=== PATIENT | female | born 1950 | race Caucasian/White ===

== ENCOUNTER → 2016-10-22 | Outpatient (CLI) | payer OTHER ==
[~2016-10-22] MED LIST: ASPEC81 PO; CHOL100010 PO; CLON1TAB3 PO; COEN150C PO; DILT-202 PO; FLUO20CA35 PO; LPT40 PO; NTRSLP4 SL; TRAZ50TA35 PO; [UNRECOGNIZED DRUG - CODE] PO
== END | disposition home or self-care (01) ==
LOC: C.MAMM 09:21
PROVIDERS: ATTEND Family Medicine
DX: E28.39 Other primary ovarian failure (principal)

== ENCOUNTER → 2017-04-23 | Outpatient (CLI) | payer OTHER ==
[~2017-04-23] MED LIST changes: +CRDCD120 PO; -DILT-202 PO
--- NOTE | 2017-04-24 13:48 | MAMMOGRAPHY REPORT ---
BILATERAL DIGITAL SCREENING MAMMOGRAM WITH CAD: 04/23/2017 CLINICAL HISTORY: Routine screening examination. TECHNIQUE: Bilateral CC and MLO views were obtained. Current study was also evaluated with a Compute r Aided Detection (CAD) system. COMPARISON: Comparison is made to exams dated: 02/26/2016 mammogram, 06/30/2014 mammogram, 03/26/2013 donita mogram, 08/20/2011 mammogram, 07/11/2010 mammogram - [facility], and 01/19/2009. BREAST COMPOSITION: The tissue of both breasts is almost entirely fatty. FINDINGS: There is a 6 mm asymmetry in the middle one third of the left breast, along the posterior nipple line on the CC view, 4.8 cm distal to the nipple. Although this could represent overlapping f ibroglandular tissue, additional spot compression tomosynthesis views and possibly ultrasound are rec ommended. No other suspicious mass, architectural distortion or cluster of microcalcifications is seen bilatera lly. IMPRESSION: ACR BI-RADS CATEGORY 0: INCOMPLETE EVALUATION: NEED ADDITIONAL IMAGING EVALUATION The 6 mm asymmetry in the left breast needs additional evaluation. The patient will be called to schedule an appointment. Approximately 10% of breast cancers are not detected with mammography. A negative mammographic report should not delay biopsy if a clinically suggestive mass is present. Chaya Munguia M.D. ay/:04/23/2017 16:31:56 Network Engineer: Deanna VENEGAS)([place]), [facility] letter sent: Addl Imaging 0 BI-RADS Code: ACR BI-RADS Category 0: Incomplete Evaluation: Need Additional Imaging Evaluation
== END | disposition home or self-care (01) ==
LOC: C.MAMM 15:36
PROVIDERS: ATTEND Family Medicine
DX: Z12.31 Encounter for screening mammogram for malignant neoplasm of breast (principal); N64.9 Disorder of breast, unspecified

== ENCOUNTER → 2017-05-02 | Outpatient (CLI) | payer OTHER ==
--- NOTE | 2017-05-02 12:44 | MAMMOGRAPHY REPORT ---
UNILATERAL LEFT DIGITAL DIAGNOSTIC MAMMOGRAM TOMOSYNTHESIS AND TARGETED LEFT ULTRASOUND: 05/02/2017 CLINICAL HISTORY: Callback from screening mammogram for left breast asymmetry. TECHNIQUE: Breast tomosynthesis in addition to standard 2D mammography was performed. Spot compress ion left CC and MLO 2-D and tomosynthesis images were obtained. COMPARISON: Comparison is made to exams dated: 04/23/2017 mammogram, 02/26/2016 mammogram, 06/30/2014 donita mogram, 03/26/2013 mammogram, 08/20/2011 mammogram, and 07/11/2010 mammogram - [facility]. BREAST COMPOSITION: The tissue of the left breast is almost entirely fatty. FINDINGS: Spot compression views demonstrate a subtle 4 mm focal asymmetry seen within the left mandeep st at approximately 3 to 4:00. The asymmetry appears similar to prior exams on the spot compression views, including the cc view from the 2008 exam and MLO view from the 2012 and 2009 exams. Targeted ultrasound was performed of the left slightly lateral breast at approximately 2 to 4:00 in t he region of the mammographic asymmetry. Sonographically normal tissue is seen, without evidence of a mass or other suspicious sonographic abnormality. IMPRESSION: ACR-BI-RADS CATEGORY 3: PROBABLY BENIGN, TARGETED ULTRASOUND ACR-BI-RADS CATEGORY 3: PRO BABLY BENIGN The left breast asymmetry appears similar to multiple prior exams including the 2008 exam on the venkat tional spot compression views, without a corresponding suspicious sonographic abnormality evident. G iven the long-term stability, the asymmetry is probably benign. Recommend follow-up diagnostic tomos ynthesis mammograms and possible ultrasound of the left breast in 6 months to confirm stability. The patient has been verbally notified of the results. Approximately 10% of breast cancers are not detected with mammography. A negative mammographic report should not delay biopsy if a clinically suggestive mass is present. Rina Russell M.D. ah/:05/02/2017 10:11:41 Bus And Trolley Dispatcher: Bee VENEGAS)([place]), [facility] letter sent: Follow Up Recommended 3 BI-RADS Code: ACR-BI-RADS Category 3: Probably Benign Ultrasound BI-RADS: ACR-BI-RADS Category 3: Pr obably Benign
== END | disposition home or self-care (01) ==
LOC: C.MAMM 09:30
PROVIDERS: ATTEND Family Medicine
DX: N64.89 Other specified disorders of breast (principal)

== ENCOUNTER 2017-11-08 06:53 | Emergency (ER) | payer OTHER ==
[~2017-11-08] VITALS: Ht 170.2 cm; Wt 80.0 kg
[~2017-11-08 06:53] MED LIST changes: -CRDCD120 PO; +DILT-202 PO
[2017-11-08 06:58] VITALS: TEMP 36.7; Ht 170.2 cm; Wt 80.0 kg
[2017-11-08] MEDS ORDERED: DILT120C PO (07:00)
[2017-11-08] MEDS ORDERED: PYRI100T4 PO (07:22)
[2017-11-08] MEDS ORDERED: ASPI81TA28 PO (07:22)
[2017-11-08 07:31] LABS: HEMATOCRIT 38.5 % (37-47); HEMOGLOBIN 13.5 g/dL (12.0-16.0); MEAN CELL VOLUME 86.7 fL (80-100); MEAN CORPUSCULAR HEMOGLOBIN 30.4 pg (25-34); MEAN CORPUSCULAR HGB CONC 35.1 g/dl (32-36); MEAN PLATELET VOLUME 9.1 fL (7.4-10.4); PLATELET COUNT 251 K/uL (130-400); RED CELL DISTRIBUTION WIDTH CV 13.2 % (11.5-14.5); RED CELL DISTRIBUTION WIDTH SD 42.2 fL (36.4-46.3); WHITE BLOOD COUNT 3.99 K/uL (4.8-10.8)
--- NOTE | 2017-11-08 07:32 | EMERGENCY ROOM VISIT NOTE ---
History Report prepared by Todd: Herminia King Under the Supervision of: Dr. Kevin Combs M.D. First contact with patient: 07:04 Chief Complaint: CARDIAC ASSESSMENT Stated Complaint: PALPITATIONS Nursing Triage Summary: patient complaining of a "fluttering" feeling in her chest. no pain or shortness of breath. states it has happened before and they called it a "heart spasm". states she has been understress, her just had knee surgery and she states that she felt anxious and took a lorazapam at about 6am. states she had a flew shot on friday and felt as she had the flew earlier this week History of Present Illness The patient is a 67 year old female who presents to the Emergency Room with complaints of palpitations in her chest. 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 She states she has a history of coronary spasms and thought she was having a similar episode to the NSTEMI she had in 2015. She took an aspirin after her episode which improved her symptoms. Associated symptoms include weakness, nausea, and diarrhea that began on . She also notes that she had a flu shot this week and had a post flu shot fever and feels generally unwell. She did not take her pulse during the episode. The patient denies chest pain, SOB, abdominal pain, swelling of the hands and feet, and fevers. 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 A total of 10 systems reviewed and were otherwise negative. Abdomen: + diarrhea Past Medical & Surgical Medical Problems: (1) Anxiety (2) High cholesterol (3) NSTEMI Surgical Problems: (1) History of appendectomy Family History FHx: lung disease Hypertension Kidney disease Kidney stones Social History Smoking Status: Never Smoker Alcohol Use: none Drug Use: none Marital Status: Housing Status: lives with significant other Occupation Status: employed Current/Historical Medications Scheduled Aspirin (Aspirin Ec), 81 MG PO QPM Cholecalciferol (Vitamin D), 1,000 INTER.UNIT PO DAILY Coenzyme Q10 (Ubidecarenone) (Co Q-10), 150 MG PO DAILY Diltiazem Hcl Coated Beads (Diltiazem Hcl Er), 120 MG PO DAILY Fluoxetine (Prozac), 20 MG PO DAILY Pyridoxine (Vitamin B6), 100 MG PO DAILY Scheduled PRN Clonazepam (Klonopin), 1 MG PO DAILY PRN for Anxiety Nitroglycerin (Nitrostat), 0.4 MG SL UD PRN for Chest Pain Trazodone Hcl (Trazodone), 25 MG PO HS PRN for Sleep Allergies Coded Allergies: No Known Allergies (Unverified , `, 11/08/17) Physical Exam Vital Signs Date Time Temp Pulse Resp B/P (MAP) Pulse Ox O2 Delivery O2 Flow Rate FiO2 11/08/17 09:35 54 20 129/65 99 Room Air 11/08/17 08:47 62 20 125/41 99 Room Air 11/08/17 07:04 100 Room Air 11/08/17 06:58 36.7 63 20 127/73 100 Room Air Physical Exam GENERAL: Patient is a healthy-appearing well-nourished female. HEAD: Normocephalic atraumatic EYES: Ocular movements intact pupils equal and react to light OROPHARYNX mucous membranes are moist no exudates present no erythema or edema present NECK: Supple no nuchal rigidity CHEST: Good equal expansion LUNGS: Clear and equal to auscultation CARDIAC: Normal S1 and S2 ABDOMEN: Soft nontender no guarding BACK: No CVA tenderness EXTREMITIES: No pain upon palpation normal muscle strength in all groups no clubbing cyanosis or edema NEURO: Patient is following commands and answering questions appropriately. Alert and oriented x3 Cranial Nerves 2-12 grossly intact Medical Decision & Procedures ER Provider Diagnostic Interpretation: Radiology results as stated below per my review and radiologist interpretation: SINGLE VIEW CHEST CLINICAL HISTORY: Palpitations. FINDINGS: An AP, portable, upright chest radiograph is compared to chest x-ray and chest CT dated 09/18/2015. The examination is degraded by portable technique and patient rotation. The cardiomediastinal silhouette is unremarkable. There is atherosclerotic calcification of the thoracic aorta. Chronic interstitial thickening is similar to previous. No airspace consolidation or pleural effusion is identified. No pneumothorax is seen. The skeletal structures are osteopenic. The bony thorax is grossly intact. IMPRESSION: No acute cardiopulmonary abnormality. Electronically signed by: Martínez Roe M.D. 11/08/2017 7:37 AM Dictated Date/Time: 11/08/2017 7:36 AM Laboratory Results 11/08/17 07:20 11/08/17 07:20 Test 11/08/17 07:14 11/08/17 07:20 11/08/17 07:28 11/08/17 08:45 Creatine Kinase MB Ratio (0-3.0) Red Blood Count 4.44 M/uL (4.2-5.4) Mean Corpuscular Volume 86.7 fL (80-100) Mean Corpuscular Hemoglobin 30.4 pg (25-34) Mean Corpuscular Hemoglobin Concent 35.1 g/dl (32-36) RDW Standard Deviation 42.2 fL (36.4-46.3) RDW Coefficient of Variation 13.2 % (11.5-14.5) Mean Platelet Volume 9.1 fL (7.4-10.4) Anion Gap 11.0 mmol/L (3-11) Est Creatinine Clear Calc Drug Dose 76.3 ml/min Estimated GFR () 90.4 Estimated GFR (Non- 78.0 BUN/Creatinine Ratio 19.8 (10-20) Calcium Level 8.9 mg/dl (8.5-10.1) Total Bilirubin 0.3 mg/dl (0.2-1) Aspartate Amino Transf (AST/SGOT) 21 U/L (15-37) Alanine Aminotransferase (ALT/SGPT) 22 U/L (12-78) Alkaline Phosphatase 48 U/L (45-117) Creatine Kinase MB < 0.5 ng/ml (0.5-3.6) Total Protein 7.1 gm/dl (6.4-8.2) Albumin 3.2 gm/dl (3.4-5.0) Globulin 3.9 gm/dl (2.5-4.0) Albumin/Globulin Ratio 0.8 (0.9-2) Lipase 331 U/L (73-393) Thyroid Stimulating Hormone (TSH) 2.070 uIu/ml (0.300-4.500) Influenza Type A Antigen Neg for Influ A (NEG) Influenza Type B Antigen Neg for Influ B (NEG) Bedside Troponin I < 0.030 ng/ml (0-0.045) Test 11/08/17 09:15 Urine Color DK YELLOW Urine Appearance CLEAR (CLEAR) Urine pH 6.0 (4.5-7.5) Urine Specific [place] 1.028 (1.000-1.030) Urine Protein TRACE (NEG) Urine Glucose (UA) NEG (NEG) Urine Ketones TRACE (NEG) Urine Occult Blood 3+ (NEG) Urine Nitrite POS (NEG) Urine Bilirubin NEG (NEG) Urine Urobilinogen NEG (NEG) Urine Leukocyte Esterase MODERATE (NEG) Urine WBC (Auto) 10-30 /hpf (0-5) Urine RBC (Auto) 5-10 /hpf (0-4) Urine Hyaline Casts (Auto) 5-10 /lpf (0-5) Urine Epithelial Cells (Auto) >30 /lpf (0-5) Urine Bacteria (Auto) 4+ (NEG) ECG Rate (beats per minute): 63 Rhythm: normal sinus Findings: ST depression (Lateral), no acute ischemic change Comparison ECG Date: 09/18/2015 Change: ST depressions in the lateral leads have improved from the last EKG. 0747: Repeat EKG on visit. Sinus bradycardia, no xp or ischemia, rate of 55. Unchanged from previous. Patient's electrocardiogram per my interpretation. ED Course 0702: Past medical records reviewed. The patient was evaluated in room A2 by the resident. A complete history and physical examination was performed. 0714: Past medical records reviewed. The patient was evaluated in room A2. A complete history and physical examination was performed. 0901: Upon reexamination the patient is agreeable. I discussed results and treatment plan with the patient and recommended she follow up with cardiology. She verbalizes agreement and understanding . The patient is ready for discharge. Medical Decision Differential diagnosis: Etiologies such as premature contractions, electrolyte abnormality, cardiac dysrhythmia, thyroid dysfunction, pulmonary embolism, infection, gastrointestinal, as well as others were entertained. This is a 67-year-old female who presents emergency department complaining of palpitations. The patient does have a PVC on EKG however has normal CK-MB troponin function. Based on this I felt that the patient can be safely discharged home with close follow-up with cardiology. Patient was in agreement with the treatment plan. Resident Physician Supervision Note: I interviewed and examined the patient. Discussed with Dr. Angulo and agree with findings and plan as documented in the note. Documented By: Kevin Combs Blood Pressure Screening Patient's blood pressure: Normal blood pressure Impression Primary Impression: Palpitations Scribe Attestation The scribe's documentation has been prepared under my direction and personally reviewed by me in its entirety. I confirm that the note above accurately reflects all work, treatment, procedures, and medical decision making performed by me. Departure Information Dispostion Home / Self-Care Referrals Sonia Galindo M.D. (PCP) Patient Instructions My [facility] Additional Instructions Please follow up with your PCP (Dr. Galindo) in 1-2 weeks. 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 Snowden) in 1-2 weeks. Please stay well hydrated especially if you have diarrhea. Discharge instructions on dehydration will be printed for you on discharge. Please read these instructions carefully. Return to the ER if you experience a recurrence of your symptoms, chest pain or SOB on exertion out of proportion to your normal baseline.
--- NOTE | 2017-11-08 07:34 | EMERGENCY ROOM VISIT NOTE ---
History First contact with patient: 08:28 Chief Complaint: CARDIAC ASSESSMENT Stated Complaint: PALPITATIONS Nursing Triage Summary: patient complaining of a "fluttering" feeling in her chest. no pain or shortness of breath. states it has happened before and they called it a "heart spasm". states she has been understress, her just had knee surgery and she states that she felt anxious and took a lorazapam at about 6am. states she had a flew shot on friday and felt as she had the flew earlier this week History of Present Illness 67F with a PMHx of Palpitation in 2014 (admitted, cath was normal), anxiety and HLD p/w a 5 min episode of palpitations after waking up this AM that resolved with an ASA tablet. Pt was brought in by EMS. Patient stated that these palpitations felt similar to her episode that had her admitted in 2014 which is why she came to the hospital. Pt denies any chest pain, left arm pain, SOB, swelling of the hand or feet. Pt had a recent episode of diarrhea on going into Friday that has resolved. She states that she could be a little dehydrated. She does not have any thyroid history or family history of thyroid disease. Pt had a flu and Pneumococcal shot on Friday and had a bit of a fever on Friday and Friday. 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 Review of Systems See HPI for pertinent positives and negatives. A total of ten systems were reviewed and were otherwise negative. Past Medical/Surgical History Medical Problems: (1) Anxiety (2) High cholesterol (3) NSTEMI Surgical Problems: (1) History of appendectomy Family History FHx: lung disease Hypertension Kidney disease Kidney stones Social History Smoking Status: Never Smoker Alcohol Use: none Drug Use: none Marital Status: Housing Status: lives with significant other Occupation Status: employed Current/Historical Medications Scheduled Aspirin (Aspirin Ec), 81 MG PO QPM Cholecalciferol (Vitamin D), 1,000 INTER.UNIT PO DAILY Coenzyme Q10 (Ubidecarenone) (Co Q-10), 150 MG PO DAILY Diltiazem Hcl Coated Beads (Diltiazem Hcl Er), 120 MG PO DAILY Fluoxetine (Prozac), 20 MG PO DAILY Pyridoxine (Vitamin B6), 100 MG PO DAILY Scheduled PRN Clonazepam (Klonopin), 1 MG PO DAILY PRN for Anxiety Nitroglycerin (Nitrostat), 0.4 MG SL UD PRN for Chest Pain Trazodone Hcl (Trazodone), 25 MG PO HS PRN for Sleep Physical Exam Vital Signs Date Time Temp Pulse Resp B/P (MAP) Pulse Ox O2 Delivery O2 Flow Rate FiO2 11/08/17 08:47 62 20 125/41 99 Room Air 11/08/17 07:04 100 Room Air 11/08/17 06:58 36.7 63 20 127/73 100 Room Air Physical Exam Gen: No acute distress. Pleasant mood and affect. HEENT: Head - normocephalic and atraumatic. Pupils are equal, round, and reactive to light. Extraocular eye muscles are intact and sclera are anicteric. Ears - bilaterally patent canals with noninjected tympanic membranes and no evidence of hemotympanum. Nose - moist nasal mucosa without discharge. Mouth - moist buccal mucosa. Oropharynx is nonerythematous and there is no tonsillar exudate or edema noted. Neck: Supple; no JVD, nuchal rigidity, cervical lymphadenopathy, or auscultated bruits. Heart: Regular rate and rhythm. There is a normal S1 and S2 with no murmurs, clicks, or gallops appreciated. Lungs: Clear to auscultation bilaterally with no wheezes, rales, or rhonchi. Abdomen: Soft, completely nontender, nondistended, with good bowel sounds. There are no palpable pulsatile masses or hepatosplenomegaly. There is no guarding, rigidity, or rebound noted. Extremities: No evidence of cyanosis, clubbing, or edema. There are easily palpable peripheral pulses. Skin: Multiple small benign appearing Seborrheic Kerotosesover the left shoulder. Neuro:The patient is awake and alert, oriented to day, time, and place. Muscle strength is 5/5 in all 4 extremities. The patient has equal custom bookbinder strength and equal pedal push and pull. There are no cerebellar signs. Medical Decision & Procedures ER Provider Diagnostic Interpretation: SINGLE VIEW CHEST CLINICAL HISTORY: Palpitations. FINDINGS: An AP, portable, upright chest radiograph is compared to chest x-ray and chest CT dated 09/18/2015. The examination is degraded by portable technique and patient rotation. The cardiomediastinal silhouette is unremarkable. There is atherosclerotic calcification of the thoracic aorta. Chronic interstitial thickening is similar to previous. No airspace consolidation or pleural effusion is identified. No pneumothorax is seen. The skeletal structures are osteopenic. The bony thorax is grossly intact. IMPRESSION: No acute cardiopulmonary abnormality. Laboratory Results 11/08/17 07:20 11/08/17 07:20 Test 11/08/17 07:14 11/08/17 07:20 11/08/17 07:28 11/08/17 08:45 Creatine Kinase MB Ratio (0-3.0) Red Blood Count 4.44 M/uL (4.2-5.4) Mean Corpuscular Volume 86.7 fL (80-100) Mean Corpuscular Hemoglobin 30.4 pg (25-34) Mean Corpuscular Hemoglobin Concent 35.1 g/dl (32-36) RDW Standard Deviation 42.2 fL (36.4-46.3) RDW Coefficient of Variation 13.2 % (11.5-14.5) Mean Platelet Volume 9.1 fL (7.4-10.4) Anion Gap 11.0 mmol/L (3-11) Est Creatinine Clear Calc Drug Dose 76.3 ml/min Estimated GFR () 90.4 Estimated GFR (Non- 78.0 BUN/Creatinine Ratio 19.8 (10-20) Calcium Level 8.9 mg/dl (8.5-10.1) Total Bilirubin 0.3 mg/dl (0.2-1) Aspartate Amino Transf (AST/SGOT) 21 U/L (15-37) Alanine Aminotransferase (ALT/SGPT) 22 U/L (12-78) Alkaline Phosphatase 48 U/L (45-117) Creatine Kinase MB < 0.5 ng/ml (0.5-3.6) Total Protein 7.1 gm/dl (6.4-8.2) Albumin 3.2 gm/dl (3.4-5.0) Globulin 3.9 gm/dl (2.5-4.0) Albumin/Globulin Ratio 0.8 (0.9-2) Lipase 331 U/L (73-393) Thyroid Stimulating Hormone (TSH) 2.070 uIu/ml (0.300-4.500) Influenza Type A Antigen Neg for Influ A (NEG) Influenza Type B Antigen Neg for Influ B (NEG) Bedside Troponin I < 0.030 ng/ml (0-0.045) Medical Decision The patient's care and disposition was discussed with Dr. Combs, Attending ED Physician. This is a 67F with palpitations. Differential diagnosis include Etiologies such as ectopy, cardiac dysrhythmia, electrolyte abnormality, thyroid dysfunction, pulmonary embolism, infection, gastrointestinal, as well as others were entertained. Triage Nursing notes were reviewed. ED Course included an extensive history and physical exam, labs, EKG and Chest X-ray. CBC WNL. Trops negative. EKG - Sinus rhythm with PVCs, normal axis, slight ST depression in V3,V4,V5 - similar to previous EKGs. Chest X-ray - WNL Flu Swab - Negative Repeat EKG, Repeat Troponins - Pending. Vital Signs reviewed and stable. 7:00 - Patient was seen and examined in the room. 7:14 - H&P and initial orders were discussed with Dr. Combs. 7:40 - Xray reviewed and WNL. 8:15 - Pt was informed about the above result, examined again, knitting and resting comfortably, feels better after PO hydration. 8:45 - Repeat EKG and repeat Trops were reviewed and negative. Discussed with Dr. Combs, pt is OK to be discharged. The pt was informed about the findings as listed above. All questions were answered. Return instructions were outlined and the patient was discharged in good condition. The patient was referred to PCP for recheck of the current condition. Head Trauma GCS Score: 15 Impression Primary Impression: Anxiety Departure Information Dispostion Home / Self-Care Condition GOOD Referrals Sonia Galindo M.D. (PCP) Trever Snowden, DO Patient Instructions My [facility] Additional Instructions Please follow up with your PCP (Dr. Galindo) in 1-2 weeks. Please follow up with your lip reading teacher (Dr. Snowden) in 1-2 weeks. Please stay well hydrated especially if you have diarrhea. Discharge instructions on dehydration will be printed for you on discharge. Please read these instructions carefully. Return to the ER if you experience a recurrence of your symptoms, chest pain or SOB on exertion out of proportion to your normal baseline. Resident Involvement: Resident Care Provided Care Provided: Adult ED
--- NOTE | 2017-11-08 07:38 | DIAGNOSTIC IMAGING REPORT ---
SINGLE VIEW CHEST CLINICAL HISTORY: Palpitations. FINDINGS: An AP, portable, upright chest radiograph is compared to chest x-ray and chest CT dated 09/18/2015. The examination is degraded by portable technique and patient rotation. The cardiomediastinal silhouette is unremarkable. There is atherosclerotic calcification of the thoracic aorta. Chronic interstitial thickening is similar to previous. No airspace consolidation or pleural effusion is identified. No pneumothorax is seen. The skeletal structures are osteopenic. The bony thorax is grossly intact. IMPRESSION: No acute cardiopulmonary abnormality. Electronically signed by: Martínez Roe M.D. 11/08/2017 7:37 AM Dictated Date/Time: 11/08/2017 7:36 AM
[2017-11-08 07:52] LABS: ALBUMIN 3.2 gm/dl (3.4-5.0); ALT/SGPT 22 U/L (12-78); AST/SGOT 21 U/L (15-37); BLOOD UREA NITROGEN 16 mg/dl (7-18); CALCIUM 8.9 mg/dl (8.5-10.1); CARBON DIOXIDE 23 mmol/L (21-32); CREATININE 0.79 mg/dl (0.60-1.20); GLUCOSE 104 mg/dl (70-99); LIPASE 331 U/L (73-393); POTASSIUM 3.8 mmol/L (3.5-5.1); SODIUM 141 mmol/L (136-145)
[2017-11-08 08:02] LABS: ALKALINE PHOSPHATASE 48 U/L (45-117); CKMB < 0.5 ng/ml (0.5-3.6); TOTAL PROTEIN 7.1 gm/dl (6.4-8.2)
[2017-11-08 08:26] LABS: INFLUENZA B ANTIGEN Neg for Influ B (NEG)
[2017-11-08 09:35] VITALS: BP 129/65; PULSE 54; O2SAT 99
== END 2017-11-08 09:44 | disposition home or self-care (01) ==
LOC: EDBD 06:53 → C.EDA 06:56
DX: R00.2 Palpitations (principal); F41.9 Anxiety disorder, unspecified; I25.2 Old myocardial infarction; Z79.82 Long term (current) use of aspirin; Z82.49 Family history of ischemic heart disease and other diseases of the circulatory system; Z84.1 Family history of disorders of kidney and ureter

== ENCOUNTER → 2017-11-13 | Outpatient (CLI) | payer OTHER ==
[~2017-11-13] MED LIST changes: -ASPEC81 PO; +ASPI81TA28 PO; -DILT-202 PO; +DILT120C PO; -LPT40 PO; +PYRI100T4 PO; -[UNRECOGNIZED DRUG - CODE] PO
--- NOTE | 2017-11-13 13:45 | MAMMOGRAPHY REPORT ---
UNILATERAL LEFT DIGITAL DIAGNOSTIC MAMMOGRAM TOMOSYNTHESIS WITH CAD AND TARGETED LEFT ULTRASOUND: 10/21 CLINICAL HISTORY: Short interval follow-up of left breast asymmetry. TECHNIQUE: Breast tomosynthesis in addition to standard 2D mammography was performed. Current study was also evaluated with a Computer Aided Detection (CAD) system. Left CC and MLO 2-D and tomosynthes is images were obtained. COMPARISON: Comparison is made to exams dated: 05/02/2017 ultrasound, 05/02/2017 mammogram, 04/23/2017 m ammogram, 02/26/2016 mammogram, 06/30/2014 mammogram, and 03/26/2013 mammogram - [facility]. BREAST COMPOSITION: The tissue of the left breast is almost entirely fatty. FINDINGS: Again noted is a small 5 mm nodular asymmetry seen within the left slightly lateral breast on the cc view middle depth, thought to project behind the nipple on the MLO view. The asymmetry is stable compared to the April 2017 exam. In retrospect, a similar density has been seen in this region on prior exams including the 2008 exam which is likely more conspicuous on the current exam due to i nvolutional changes. The remainder of the left breast is stable compared to prior exams, without pam picious masses, calcifications, or areas of architectural distortion noted. Targeted ultrasound was performed of the left central and 3:00 periareolar breast. No suspicious mas ses or other suspicious sonographic abnormalities are evident. No correlate for the asymmetry is see n. IMPRESSION: ACR-BI-RADS CATEGORY 3: PROBABLY BENIGN, TARGETED ULTRASOUND ACR-BI-RADS CATEGORY 3: PRO BABLY BENIGN The left breast asymmetry is stable compared to the April 2017 exam, and in retrospect is likely not s ignificantly changed dating back to the 2008 exam. No clear sonographic correlate is evident. The a symmetry is probably benign. Recommend bilateral diagnostic tomosynthesis mammogram and possible tar geted ultrasound in 6 months, to reevaluate the left breast asymmetry and for routine mammography of the right breast. The patient has been verbally notified of the results. Approximately 10% of breast cancers are not detected with mammography. A negative mammographic report should not delay biopsy if a clinically suggestive mass is present. Rina Russell M.D. ah/:11/13/2017 09:51:55 [id number] Administrator: Edna JIN(Windy)(M), [facility] letter sent: Follow Up Recommended 3 BI-RADS Code: ACR-BI-RADS Category 3: Probably Benign Ultrasound BI-RADS: ACR-BI-RADS Category 3: Pr obably Benign
== END | disposition home or self-care (01) ==
LOC: C.MAMM 09:13
PROVIDERS: ATTEND Family Medicine
DX: N64.89 Other specified disorders of breast (principal)

== ENCOUNTER → 2018-05-20 | Outpatient (CLI) | payer OTHER ==
[~2018-05-20] MED LIST changes: -CLON1TAB3 PO; +CLON1TAB5 PO; +DILT-213 PO; -DILT120C PO
--- NOTE | 2018-05-20 14:57 | MAMMOGRAPHY REPORT ---
BILATERAL DIGITAL DIAGNOSTIC MAMMOGRAM TOMOSYNTHESIS WITH CAD: 05/20/2018 CLINICAL HISTORY: 68-year-old woman presents for continued follow-up for a 6 mm focal asymmetry in th e 5-6:00 versus central left breast. Also due for annual bilateral mammograms. TECHNIQUE: Bilateral CC and MLO 2D and tomosynthesis images were obtained. Current study was also ev aluated with a Computer Aided Detection (CAD) system. COMPARISON: Comparison is made to exams dated: 11/13/2017 mammogram, 05/02/2017 mammogram, 04/23/2017 ma mmogram, 02/26/2016 mammogram, 06/30/2014 mammogram, and 03/26/2013 mammogram - [facility]. BREAST COMPOSITION: The tissue of both breasts is almost entirely fatty. FINDINGS: There is persistence of a 6.2 x 3.2 mm focal asymmetry in the 5 to 6:00 versus central left breast, that is stable in size and visual appearance dating back to the tomosynthesis images perform ed May 02, 2017 and April 23, 2017 screening mammogram views, also likely stable dating back to the 09 07 mammograms, given differences in technique. No new suspicious masses, calcifications, areas of ar chitectural distortion or asymmetries are seen bilaterally. There are minimal vascular calcification s in the breasts. Another 12 month follow-up left diagnostic tomosynthesis mammogram and possible ul trasound is recommended to ensure longer stability of this focal asymmetry on the tomosynthesis image s. Annual bilateral mammography will also be due at that time. IMPRESSION: ACR-BI-RADS CATEGORY 3: PROBABLY BENIGN 1. Stable mammographic appearance of the breasts including a 6 mm focal asymmetry in the 5 to 6:00 v ersus central left breast, without definite mammographic evidence of malignancy. Another 12 month fo llow-up left diagnostic mammogram including tomosynthesis images and possible ultrasound is recommend ed to ensure at least 2 years of stability on the tomosynthesis views, as that is how the borders are best visualized and measured. Annual right mammography will also be due at that time. These results and recommendations were discussed with the patient at the time of the exam. Some breast cancers are not detected with mammography. A negative mammographic report should not seble y biopsy if a clinically suggestive mass is present. Chaya Munguia M.D. ay/:05/20/2018 10:35:48 [employer] Clerk: RT Chente(Windy)(M), [facility] letter sent: Follow Up Recommended 3 BI-RADS Code: ACR-BI-RADS Category 3: Probably Benign
== END | disposition home or self-care (01) ==
LOC: C.MAMM 09:49
PROVIDERS: ATTEND Family Medicine
DX: N64.89 Other specified disorders of breast (principal)